=== PATIENT | female | born 1990 | race Caucasian/White ===

== ENCOUNTER 2018-03-23 18:12 | Inpatient (IN) | payer MEDICAID, SELFPAY ==
[2018-03-23] MEDS: Labetalol 100 MG/20 ML VIAL IVP ×3 (19:20→20:25)
[2018-03-23 19:22] LABS: HCT 37.3 % (36.0-46.0); Mean Corp. HGB Concentration 34.9 g/dL (32.0-36.0); Mean Corpuscular Hemoglobin 28.8 pg (27.0-33.0); Mean Corpuscular Volume 82.7 fL (80-95); Mean Platelet Volume 12.6 fL (8.0-11.0); Platelet Count 194 x1000/uL (130-400); RBC 4.51 m/cumm (4.00-5.20); RBC Distribution Width 13.2 % (11.7-14.6); White Blood Cell Count 8.05 k/cumm (4.4-10.8)
[2018-03-23] MEDS: Betamet Acet/Betamet Na Ph Inj. 30 MG/5 ML 12 MG IM (19:31)
[2018-03-23 19:40] LABS: COMMENT (LAB VIEW ONLY) 19.97 mg/dL; PROTEIN 12.1 mg/dL
[2018-03-23 19:40] LABS: Magnesium 1.5 mg/dL (1.8-2.4)
[2018-03-23 19:44] LABS: ALT 14 U/L (12-78); AST 20 U/L (15-37); Albumin 2.6 g/dL (3.4-5.0); Alkaline Phosphatase 101 U/L (46-116); BUN 12 mg/dL (7-18); Bilirubin, Direct 0.06 mg/dL (0.00-0.20); Bilirubin, Total 0.2 mg/dL (0.2-1.0); CREATININE 0.56 mg/dL (0.55-1.02); LDH 211 U/L (81-234); Total Protein 6.4 g/dL (6.4-8.2); Uric Acid 4.9 mg/dL (2.6-6.0)
[2018-03-23] MEDS: hydrALAZINE 20 MG/ML VIAL IVP ×2 (21:16→21:45)
[2018-03-23] MEDS: NIFEdipine 10 MG CAP PO (22:30)
== END 2018-03-24 00:10 | disposition short-term general hospital (02) | DRG 833 ==
LOC: OBS 03-24 05:04
PROVIDERS: Admitting Provider Family Medicine; PCP Nurse Practitioner; Visit Provider Family Medicine
DX: O14.13 Severe pre-eclampsia, third trimester (principal); Z3A.29 29 weeks gestation of pregnancy
CPT/HCPCS: 80076; 84520; 85027; 96360; 96361; 96365; 96366; 96372; 82565; 83615; 83735; 84156; 84550; J0360; J0702; J3475; J3490

== ENCOUNTER 2023-03-16 20:21 | Emergency (ER) | payer OTHER, SELFPAY | END 2023-03-16 20:52 | disposition left against medical advice (07) | LOC: ER 20:27 | PROVIDERS: PCP Family Medicine | DX: Z53.21 Procedure and treatment not carried out due to patient leaving prior to being seen by health care provider (principal) ==

== ENCOUNTER → 2023-03-30 04:06 | Outpatient (CLI) | payer OTHER, SELFPAY ==
--- NOTE | 2023-03-30 14:09 | DI.RAD_ITS ---
Exam(s) XR FOOT RT COMPLETE EXAM: XR FOOT RT COMPLETE CLINICAL HISTORY: Right foot painful bunion,m21.611.m79.671. TECHNIQUE: 2D digital imaging was performed. Three views. COMPARISON: No exams were available for comparison FINDINGS: BONES: No acute fracture is present. No bony destructive lesion is seen. JOINTS: No dislocation present. The plantar arch is maintained. No significant degenerative changes . SOFT TISSUE: Mild prominence at the 1st metatarsal head. IMPRESSION: Mild soft tissue prominence at 1st metatarsal head. DATA REPOSITORY: RADIATION DOSE DELIVERED:
--- NOTE | 2023-03-30 15:15 | DI.RAD_ITS ---
Exam(s) XR FOOT LT COMPLETE EXAM: XR FOOT LT COMPLETE CLINICAL HISTORY: M21.612 pain in left foot. TECHNIQUE: 2D digital imaging was performed. Three views. COMPARISON: CR XR FOOT RT COMPLETE from 03/30/2023 FINDINGS: BONES: No acute fracture is present. No bony destructive lesion is seen. JOINTS: No dislocation present. No significant degenerative changes. The plantar arch is maintaine d. SOFT TISSUE: Normal. IMPRESSION: Unremarkable radiographs of the left foot. DATA REPOSITORY: RADIATION DOSE DELIVERED:
== END ==
PROVIDERS: PCP Family Medicine; Visit Provider Podiatrist
DX: M21.611 Bunion of right foot (principal); M79.671 Pain in right foot; M21.612 Bunion of left foot
CPT/HCPCS: 73630

== ENCOUNTER → 2023-05-04 01:56 | Outpatient (CLI) | payer OTHER, SELFPAY ==
--- NOTE | 2023-05-04 08:15 | DI.RAD_ITS ---
Exam(s) XR FOOT RT COMPLETE EXAM: XR FOOT RT COMPLETE CLINICAL HISTORY: tibial sesamoid fx,rt foot pain,m79.671.,s92.811a. TECHNIQUE: 2D digital imaging was performed of the right foot. Three images were obtained. AP, obl ique and lateral views were obtained. COMPARISON: CR XR FOOT RT COMPLETE from 03/30/2023 FINDINGS: BONES: No acute fracture is present. No bony destructive lesion is seen. There again seen 2 half of t he tibial sesamoid. This may represent a bipartite sesamoid or fractured sesamoid. Please correlate clinically. JOINTS: No dislocation present. SOFT TISSUE: Normal. IMPRESSION: No change in appearance of the right foot compared to the prior examination. DATA REPOSITORY: RADIATION DOSE DELIVERED:
== END ==
PROVIDERS: PCP Family Medicine; Visit Provider Podiatrist
DX: S92.811A Other fracture of right foot, initial encounter for closed fracture (principal); M79.671 Pain in right foot; X58.XXXA Exposure to other specified factors, initial encounter
CPT/HCPCS: 73630

== ENCOUNTER → 2023-08-11 10:05 | Outpatient (CLI) | payer OTHER, SELFPAY ==
--- NOTE | 2023-08-11 08:53 | DI.RAD_ITS ---
Exam(s) XR FOOT RT COMPLETE EXAM: XR FOOT RT COMPLETE CLINICAL HISTORY: progress, closed fracture sesamoid bone rt foot, S92.811A. TECHNIQUE: 2D digital imaging was performed. COMPARISON: CR XR FOOT RT COMPLETE from 05/04/2023 FINDINGS: 3 views The more medial of the 2 sesamoid bones subjacent to the great toe metatarsal head is a bipartite or fractured sesamoid. Requires clinical correlation. No other osseous findings. Lisfranc joint appea rs unremarkable. Bone density normal. No osseous lesions. No pes planus. IMPRESSION: Unchanged CT from 05/04/2023. DATA REPOSITORY: RADIATION DOSE DELIVERED:
== END ==
PROVIDERS: PCP Family Medicine; Visit Provider Podiatrist
DX: S92.811D Other fracture of right foot, subsequent encounter for fracture with routine healing (principal); X58.XXXD Exposure to other specified factors, subsequent encounter
CPT/HCPCS: 73630

== ENCOUNTER → 2023-09-02 00:14 | Outpatient (CLI) | payer OTHER, SELFPAY ==
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
== END ==
PROVIDERS: PCP Family Medicine; Visit Provider Podiatrist
DX: S92.811A Other fracture of right foot, initial encounter for closed fracture (principal); M79.671 Pain in right foot
CPT/HCPCS: 73630

== ENCOUNTER 2024-03-18 17:49 | Outpatient (CLI) | payer OTHER, SELFPAY ==
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
== END 2024-03-18 18:09 ==
LOC: DI 17:52
PROVIDERS: PCP Family Medicine; Visit Provider Physician Assistant Medical
DX: Y09 Assault by unspecified means (principal); S09.93XA Unspecified injury of face, initial encounter
CPT/HCPCS: 70110

== ENCOUNTER 2024-03-21 13:53 | Outpatient (CLI) | payer OTHER, SELFPAY ==
[2024-03-21 11:51] LABS: HCT 39.5 % (36.0-46.0); HGB 13.2 g/dL (11.2-15.7); MCH 28.6 pg (27.0-33.0); MCHC 33.4 % (32.0-36.0); MCV 86 fL (80-95); MPV 10.5 fL (8.0-11.0); Platelet Count 275 10^3/uL (130-400); RBC 4.62 10^6/uL (3.93-5.22); RDW-SD 37.5 fL; WBC 5.89 10^3/uL (4.4-10.8)
[2024-03-21 12:19] LABS: ALT 18 U/L (14-59); AST 21 U/L (15-37); Albumin 3.7 g/dL (3.4-5.0); Alkaline Phosphatase 52 U/L (46-116); Anion Gap 10.2 mmol/L (3-11); BUN 7 mg/dL (7-18); Bilirubin, Total 0.49 mg/dL (0.2-1.0); CO2 24.8 mmol/L (21.0-32.0); CREATININE 0.9 mg/dL (0.55-1.02); Chloride 104 mmol/L (98-107); Estimated GFR 86.03 (mL/min/1.73m2); Glucose 96 mg/dL (74-106); HCG Quant, Pregnancy 1 mIU/mL (1-3); Potassium 3.8 mmol/L (3.5-5.1); Sodium 139 mmol/L (136-145); TSH (W/Ref FT4) 0.79 uIU/mL (0.36-3.74); Total Protein 7.2 g/dL (6.4-8.2)
== END 2024-03-21 13:54 | disposition home or self-care (01) ==
LOC: LBO 13:55
PROVIDERS: PCP Family Medicine; Visit Provider Obstetrics & Gynecology Gynecology
DX: Z01.818 Encounter for other preprocedural examination (principal); R63.5 Abnormal weight gain; F11.10 Opioid abuse, uncomplicated
CPT/HCPCS: 36415; 80053; 85027; 86850; 86900; 86901; 84443; 84702

== ENCOUNTER 2024-03-23 07:02 | Day surgery (SDC) | payer OTHER, SELFPAY ==
[2024-03-23] VITALS (16 sets, daily range): BP systolic 117–148; BP diastolic 57–96; PULSE 52–97; RESP 13–22; TEMP 36.4–37.1; O2SAT 95–100; BMI 24.7
[2024-03-23] MEDS: Lactated Ringers 1,000 ML 80 ML IV (07:05)
--- NOTE | 2024-03-23 07:11 | ANES.PREOP_ITS ---
General Info Date of Service Date Performed: 03/23/24 Height: 5 ft 3 in Weight: 63.5 kg Body Mass Index (BMI): 24.7 Surgical Procedure: Operation Date: 03/23/24 07:40 Proposed Procedure Side Surgeon p Salpingectomy Laparoscopic Bilateral Ana Gallo MD Actual Procedure Side Surgeon p Salpingectomy Laparoscopic Bilateral Ana Gallo MD Pre-Op Diagnosis Post-Op Diagnosis desired sterilization Meds Allergies and Home Medications Allergies Allergy/AdvReac Type Severity Reaction Status Date / Time chlorhexidine Allergy Severe Skin Rash Verified 03/23/24 07:04 latex Allergy Intermediate Skin Rash Verified 03/23/24 07:04 grass pollen-perennial rye, Allergy Mild watery Verified 03/23/24 07:04 standar eyes, sneezing lactose Allergy Diarrhea Verified 03/23/24 07:04 codeine AdvReac Intermediate Nausea Verified 03/23/24 07:04 Dust mites Allergy Mild Watery Uncoded 03/23/24 07:04 eyes, sneezing and coughing Home Medication ?Medication ?Instructions ?Recorded buprenorphine 2 mg-naloxone 0.5 mg 2 film buccal DAILY 02/27/23 sublingual film (Suboxone) buprenorphine 8 mg-naloxone 2 mg 1 film buccal DAILY 02/27/23 sublingual film (Suboxone) cetirizine 10 mg capsule (All Day 10 mg PO DAILY PRN 03/30/23 Allergy (cetirizine)) cholecalciferol (vitamin D3) 50 50 mcg PO DAILY 06/25/23 mcg (2,000 unit) capsule desogestrel 0.15 mg-ethinyl 1 tab PO DAILY 01/29/24 estradiol 0.03 mg tablet (Enskyce) atomoxetine 18 mg capsule 18 mg PO DAILY ADHD 03/21/24 Current Visit Medications: Current Medications Generic Name Dose Route Start Last Admin Trade Name Freq PRN Reason Stop Dose Admin Ringer's Solution 1,000 mls @ 80 mls/hr 03/23/24 07:05 IV 04/22/24 07:04 INFUSION JENN IV Miscellaneous Supplies 1 each 03/23/24 06:00 Iv Access IV 03/23/24 23:59 DIRECTED JENN Sodium Chloride 0 ml 03/23/24 06:00 Normal Saline Flush 10 Ml Syr IV 03/23/24 23:59 PRN PRN Sodium Chloride 0 ml 03/23/24 06:00 Normal Saline 10 Ml Vial IJ 03/23/24 23:59 DIRECTED PRN Sterile Water 0 ml 03/23/24 06:00 Water,Injection,Sterile 10 Ml Vial IJ 03/23/24 23:59 DIRECTED PRN PFSH Active Problems Active Problems: Problem Status Onset Code Weight gain Acute R63.5 Pre-op exam Acute Z01.818 Encounter for contraceptive planning Acute Z30.09 Left lower quadrant abdominal pain Acute R10.32 Left ovarian cyst Acute N83.202 Pain in right foot Acute M79.671 Closed fracture of sesamoid bone of right foot Acute S92.811A Hallux valgus (acquired), right foot Acute M20.11 Bunion, left foot Acute M21.612 Asthma Chronic J45.909 Opiate abuse, continuous Acute F11.10 Seasonal allergic reaction Acute J30.2 Psoriasis Chronic L40.9 Insomnia Acute G47.00 Anxiety Chronic F41.9 Tobacco dependence due to cigarettes Acute F17.210 Medical History Medical History Hx of opioid abuse Delivery by emergency 02/2012 Ovarian cyst with internal hemorrhage, requiring surgery 06/2012. 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 Surgical History Surgical History H/O myringotomy H/O sinus surgery 2009, [facility] [place] Tobacco Smoking/Tobacco Use Status: Current every day Tobacco Type: cigarettes Alcohol Alcohol Intake: never Substance Use Substance use: Current Sobriety Substance use type: former substance user Vital Signs and Lab Results Vital Signs Most Recent Vital Signs in EMR: Most Recent Vital Signs Temp Pulse Resp BP Pulse Ox 37.1 C 81 16 148/96 H 97 03/23/24 06:46 03/23/24 06:46 03/23/24 06:46 03/23/24 06:46 03/23/24 06:46 Lab Results Blood Type / Crossmatch: 2 Antibody Screen NEGATIVE 03/21/24 Complete Blood Count: White Blood Count 5.89 10^3/uL (4.4-10.8) 03/21/24 11:45 Red Blood Count 4.62 10^6/uL (3.93-5.22) 03/21/24 11:45 Hemoglobin 13.2 g/dL (11.2-15.7) 03/21/24 11:45 Hematocrit 39.5 % (36.0-46.0) 03/21/24 11:45 Platelet Count 275 10^3/uL (130-400) 03/21/24 11:45 Complete Metabolic Panel: Sodium 139 mmol/L (136-145) 03/21/24 11:45 Potassium 3.8 mmol/L (3.5-5.1) 03/21/24 11:45 Chloride 104 mmol/L (98-107) 03/21/24 11:45 Carbon Dioxide 24.8 mmol/L (21.0-32.0) 03/21/24 11:45 BUN 7 mg/dL (7-18) 03/21/24 11:45 Creatinine 0.9 mg/dL (0.55-1.02) 03/21/24 11:45 Est GFR (CKD-EPI 2020) 86.03 (mL/min/1.73m2) 03/21/24 11:45 Calcium 9.0 mg/dL (8.5-10.1) 03/21/24 11:45 Albumin 3.7 g/dL (3.4-5.0) 03/21/24 11:45 Glucose 96 mg/dL (74-106) 03/21/24 11:45 Liver Function Panel: Alanine Aminotransferase (ALT/SGPT) 18 U/L (14-59) 03/21/24 11: 45 Aspartate Amino Transf (AST/SGOT) 21 U/L (15-37) 03/21/24 11:45 Coagulation Panel: No Data to Display Cardiac Panel: No Data to Display Arterial Blood Gas: No Data to Display Venous Blood Gas: No Data to Display Pancreas Panel: No Data to Display Thyroid Panel: Thyroid Stimulating Hormone (TSH) 0.79 uIU/mL (0.36-3.74) 03/21 11:45 Infectious Disease: No Data to Display Blood Cultures: No Data to Display Toxicology Panel: No Data to Display Panel: Beta HCG, Quantitative 1 mIU/mL (1-3) 03/21/24 11:45 Anesthesia Assessment and Plan Anesthesia History Personal History: No History of Anesthesia Complications Family History: No Family History of Anesthesia Complications Exercise Tolerance Exercise Tolerance: Metabolic Equivalents>4 Pertinent Negatives Pertinent Negatives: No Symptoms of GERD and No Major Cardiovascular Symptoms or Complaints Cardiac & Pulmonary Exam Cardiac Exam: Normal S1/S2 Heart Sounds Pulmonary Exam: Clear Bilateral Breath Sounds Implantable Cardiac Device Does patient have a Pacemaker or an ICD?: No Airway Exam Known Difficult Airway: No Mallampati Class: 1 Mouth Opening: Normal (> 3cm) Thyromental Distance: Greater than 3 cm Neck Range of Motion: Full ROM Neck Circumference: Normal Teeth Condition: Normal Dentition ASA Classification ASA Score: ASA 2 Emergency Case?: No NPO Status NPO Status: NPO Clears >2 hours, Solids >8 hours Status Status: Negative HCG Anesthesia Plan Resuscitation Status: Full Code Anesthesia Technique: General Anesthesia Airway Planned: Endotracheal Tube Monitors Used: Standard Monitors and SedLine
--- NOTE | 2024-03-23 08:20 | FALL_PTH ---
PATIENT: Radhika Dial LOC: [facility] U#:[id number] AGE/SX: 33/F ROOM: RE03/23/[address]: Ana Gallo : 1990 BED: DIS: 03/23/2024 SPEC #: [id number] RECD: 03/23/24 12:28 STATUS: EDVIN REQ #: [id number] ISAMAR: 03/23/24 08:[address]: Ana Galol DEPT: Surgical Specimen RECD BY: Hayley Altamirano ENTERED: 03/23/24 12:29 SP TYPE: Fall OTHR DR: Reynold Hilario Tissues: 1 - FALLOPIAN TUBE (STERILIZATION) 2 - FALLOPIAN TUBE (STERILIZATION) Procedures: GROSS AND MICRO LEVEL 2 Comments: [id number]
[2024-03-23] MEDS: Bupivacaine 0.25% Pres-Free 30 ML VIAL (08:33)
--- NOTE | 2024-03-23 08:46 | W.PM.DSUDISC ---
Date of service: 03/23/24 Discharge Plan Disposition Patient Disposition: Home Condition: Stable Discharge Details Reason For Visit: bilateral salpingectomy Attending Provider: Ana Gallo Primary Care Provider: Reynold Hilario Home Meds and New Rx's Prescriptions: Discontinued desogestrel-ethinyl estradiol [Enskyce] 0.15-0.03 mg tablet 1 tab PO DAILY No Action All Day Allergy (cetirizine) 10 mg capsule 10 mg PO DAILY PRN cholecalciferol (vitamin D3) 50 mcg (2,000 unit) capsule 50 mcg PO DAILY buprenorphine-naloxone [Suboxone] 2-0.5 mg film 2 film buccal DAILY Rx Instructions: place 1 strip/tab under (each) side of tongue buprenorphine-naloxone [Suboxone] 8-2 mg film 1 film buccal DAILY atomoxetine 18 mg capsule 18 mg PO DAILY Patient Comments: I only take 1 capsule a day Discharge Instructions Additional Instructions: You may have a prescription for Percocet if you find that the 600mg of Ibuprofen and 650mg of Acetaminophen is not enough to control your pain. You may begin cycling again in 2 weeks. Do not lift anything over 10lbs or anything that makes you grunt for 2 weeks. You may remove and reapply the Bandaids as needed. Leave the steristrips in place until your postop visit. You should have a postop visit in two weeks with Dr. Gallo Stand Alone Forms: Anesthesia Discharge Inst., DSU Post Front Clerk SurgeryW/Asia Cook ([facility]U) Referrals: Ana Gallo MD [ [facility] STAFF PHYSICIAN] - 04/06/24 3:40 pm Activity:: no heavy lifting Shower/Bathe:: 24 hours Diet:: As Tolerated Discharge Orders Discharge Orders: Discharge Order (Routine); Ordered 03/23/24 Ordered By: Ana Gallo DS: Diagnosis Discharge Diagnosis (1) History of female sterilization: Status: Acute (2) History of bilateral salpingectomy: Status: Acute
[2024-03-23] MEDS: ACETAMINOPHEN 1,000 MG/100 ML BAG 400 MG IVPB (09:01)
--- NOTE | 2024-03-23 09:53 | W.ANESPOSTOP ---
Postoperative Evaluation Date, Time and Location Date Performed: 03/23/24 Time Performed: 09:52 Patient Location: Day Surgery Unit Vital Signs Most Recent Imported Vital Signs: Most Recent Vital Signs Temp Pulse Resp BP Pulse Ox 36.5 C 52 L 16 121/73 95 03/23/24 09:41 03/23/24 09:41 03/23/24 09:41 03/23/24 09:41 03/23/24 09:41 Pain Score Most Recent Pain Score: Most Recent Pain Score Pain Level 0 03/23/24 09:41 Assessment Mental Status: Awake (Alert & Oriented to Patient Baseline) Airway and Respiratory Function: Patent airway with normal (patient baseline) respiratory exam Cardiovascular Function: Hemodynamically Stable Hydration Status: Adequately Hydrated Nausea & Vomiting: No Nausea or Vomiting Pain: Pt. Denies Any Pain Peripheral Nerve Block: Patient did not receive a nerve block
--- NOTE | 2024-03-23 11:31 | ROE_ITS ---
Operative Note Operative Note PRE-OP DIAGNOSIS: Undesired fertility POST-OP DIAGNOSIS: same PROCEDURE: Laparoscopic bilateral salpingectomy SURGEON: Ana Gallo ASSISTING SURGEON: Jessica Nielson ANESTHESIA TYPE: General LMA/ETT Refer to Anesthesia Record ESTIMATED BLOOD LOSS: 0 PATHOLOGY: other (Bilateral fallopian tubes to pathology) COMPLICATIONS: None Patient was transported to: PACU Patient's condition: stable Indications: 33yo G2 female who has been counseled regarding contraceptive options and has decided on a permanent sterilization. Pt is sure that does not desire any more children, even if her life circumstances were to change. She was given options for LARC and has decided on a laparoscopic bilateral salpingectomy. Findings: Normal pelvis, uterus, adnexa and upper abdomen Procedure Description: Patient was taken to the operating room where she was placed in the dorsal supine position and endotracheal anesthesia was administered without difficulty. SCDs were in place. A surgical timeout was performed. She was prepped and draped in the usual sterile fashion. The umbilical fold was infiltrated with 0.25% Marcaine without epinephrine and 12 mm vertical skin incision was made in the umbilicus. Through this incision a varies needle connected to carbon dioxide gas was inserted into the abdomen and intra-abdominal placement confirmed by drop in the intra-abdominal pressure. Once a pneumoperitoneum was established a 12 mm Visiport trocar was introduced into the abdomen under direct visualization. The patient was then placed in Trendelenburg and 2 sites on the abdomen approximately 6 cm diagonal to the right of and left of the umbilical incision were transilluminated the skin infiltrated with 0.25% Marcaine, incised with a scalpel and under direct visualization two 5 mm ports were placed in the right and left lower quadrants respectively. The abdomen was inspected with the above-noted findings. The left fallopian tube was located, followed out to its fimbriated end and a LigaSure electrocautery device was used to sequentially clamp, cauterize and tr ansect the fimbria from the left mesosalpinx to the level of the left uterine cornua. The left fallopian tube was then delivered through the 5 mm port and passed off of the operative field. A similar technique was carried out on the right fallopian tube without difficulty. The right fallopian tube was then delivered through the umbilical port. Both fallopian tube pedicles were inspected and noted to be hemostatic. Under direct visualization the two 5 mm ports were removed, pneumoperitoneum reduced, and the umbilical port removed. The fascia of the umbilical port site was reapproximated with interrupted suture of 0 Vicryl. The skin of all trocar sites was reapproximated with 4-0 Monocryl and covered with dry sterile dressings. The patient was awakened extubated and transported to recovery area in stable condition. All sponge lap needle counts are correct x2. Date of Procedure: 03/23/24
== END 2024-03-23 09:56 | disposition home or self-care (01) ==
PROVIDERS: PCP Family Medicine; Visit Provider Obstetrics & Gynecology Gynecology
PROC: (CPT 58661; principal; 2024-03-23 07:30)
DX: Z30.2 Encounter for sterilization
CPT/HCPCS: 58661; 36415; 86850; 86900; 86901; 88302; J0131; J0665; J1100; J1885; J2003; J2250; J2405; J2704

== ENCOUNTER 2025-01-06 10:18 | Outpatient (CLI) | payer OTHER, SELFPAY ==
[2025-01-06 10:53] LABS: Abs Immature Grans 0.02 10^3/uL (0.0-0.06); HCT 38.0 % (36.0-46.0); HGB 12.7 g/dL (11.2-15.7); Immature Grans % 0.4 %; MCH 28.3 pg (27.0-33.0); MCHC 33.4 % (32.0-36.0); MCV 85 fL (80-95); MPV 10.7 fL (8.0-11.0); Platelet Count 230 10^3/uL (130-400); RBC 4.49 10^6/uL (3.93-5.22); RDW 12.8 % (11.7-14.6); RDW-SD 39.4 fL; WBC 4.69 10^3/uL (4.4-10.8)
[2025-01-06 12:30] LABS: ALT 8 U/L (10-49); AST 16 U/L (<34); Albumin 4.4 g/dL (3.4-5.0); Alkaline Phosphatase 55 U/L (46-116); Anion Gap 6.9 mmol/L (3-11); BUN 7 mg/dL (9-23); Bilirubin, Total 1.00 mg/dL (0.2-1.2); CO2 27.1 mmol/L (20.0-31.0); Calcium 8.9 mg/dL (8.3-10.6); Chloride 108 mmol/L (98-107); Glucose 89 mg/dL (74-106); Potassium 4.1 mmol/L (3.5-5.1); Sodium 142 mmol/L (136-145); Total Protein 6.8 g/dL (5.7-8.2)
[2025-01-06 18:44] LABS: Hepatitis C Ab w Rflx HCV PCR Negative (Negative)
[2025-01-08 12:14] LABS: TB Interpretation Negative (Negative); TB1 Ag minus Nil 0.00 IU/mL; TB2 Ag minus Nil 0.05 IU/mL
== END 2025-01-06 10:19 | disposition home or self-care (01) ==
LOC: LBO 10:20
PROVIDERS: PCP Family Medicine; Visit Provider Psychiatry & Neurology Neurology
DX: Z79.899 Other long term (current) drug therapy (principal)
CPT/HCPCS: 36415; 80053; 86803; 85025; 86480